=== PATIENT | male | born 1985 | race Caucasian/White ===

== ENCOUNTER 2023-09-01 16:29 | Emergency (ER) | payer OTHER, SELFPAY ==
[2023-09-01 16:41] VITALS: BP 165/100
[2023-09-01 17:14] LABS: % Basophils 0.4 % (0-2); % Eosinophils 3.9 % (0-6); % Immature Granulocytes 0.3 % (0-0.5); % Lymphocytes 28.3 % (20.5-51.1); % Monocytes 7.2 % (1.7-9.3); % Neutrophils 59.9 % (42.2-75.2); Absolute Eosinophils 0.4 10^3/uL (0-0.7); Absolute Lymphocytes 2.9 10^3/uL (1.2-3.4); Absolute Monocytes 0.7 10^3/uL (0.1-0.6); Absolute Neutrophils 6.1 10^3/uL (1.4-6.5); Hematocrit 40.7 % (39.0-52.0); Hemoglobin 14.1 g/dL (13.0-18.0); Mean Corp Hgb Conc. 34.6 g/dL (33.0-37.0); Mean Corpuscular Volume 92.3 fL (80.0-94.0); Mean Platelet Volume 10.4 fL (7.4-10.4); Nucleated Red Blood Cells % 0 % (-); Platelet Count 245 10^3/uL (130-400); Red Blood Cell Count 4.41 10^6/uL (4.70-6.10); Red Cell Dist. Width 12.6 % (11.5-14.5); White Blood Cell Count 10.2 10^3/uL (4.8-10.8)
[2023-09-01 17:23] LABS: ALT (SGPT) 27 U/L (0-50); AST (SGOT) 33 U/L (17-59); Albumin 4.6 g/dl (3.5-5.0); Alkaline Phosphatase 78 U/L (38-126); Blood Urea Nitrogen 18 mg/dl (9-20); Calcium 9.7 mg/dl (8.4-10.2); Carbon Dioxide 27 mmol/L (22-30); Chloride 101 mmol/L (98-107); Glucose 105 mg/dl (70-99); Sodium 138 mmol/L (135-145); Total Bilirubin 0.5 mg/dl (0.2-1.3); Total Protein 7.7 g/dl (6.3-8.2); eGFR > 60.00
[2023-09-01 17:33] LABS: Troponin I < 0.012 ng/ml
[2023-09-01 20:09] VITALS: BP 165/95
--- NOTE | 2023-09-01 20:11 | ED.GENMED ---
History of Present Illness
General
Chief Complaint: Fainting Sensation
Source: patient
Exam Limitations: none
Time Seen by Provider: 09/01/23 19:32
Travel History
Have you had any contact with someone who has COVID-19?: No
Do you have any symptoms of coronavirus? Fever > 100 degrees, chills, cough, shortness of breath, sore throat, loss of taste or smell, muscle aches, or headache?: No
History of Present Illness
History of Present Illness:
38-year-old male presents with presyncope started today while at work. He was sitting down. He started feeling lightheaded numb in both arms and legs. He denies any chest pain. He noticed on his heart rate function on his smart watch that his
heart rate was faster than usual. There was no back pain nausea vomiting. No recent fever. Of note patient does admit to drinking several caffeinated beverages today. This caffeine total 880 mg of caffeine. He states since the onset of symptoms
he now feels back to his baseline. Last ingestion of caffeine was about 5 hours prior to my exam.
Phy Exam
Physical Exam
Physical Exam:
General: Well-appearing male no acute respiratory distress
HEENT: NC/AT
Heart: RRR, no murmurs
Lungs; CTA bilaterally
Ext: NO cyanosis or edema
Skin: Warm, no rashes
Course
Orders/Labs/Results
Orders:
Orders
09/01/23 16:44
Electrocardiogram (*1) Urgent
Reason for Study: Syncope
EKG- Treatment ONCE
09/01/23 16:52
Complete Blood Count/With Diff Urgent
Comprehensive Metabolic Panel Urgent
Troponin I Urgent
Abnormal Lab Results
09/01/23
16:52
RBC 4.41 L 10^6/uL
(4.70-6.10)
MCH 32.0 H pg
(27.0-31.0)
Absolute Monos (auto) 0.7 H 10^3/uL
(0.1-0.6)
Glucose 105 H mg/dl
(70-99)
09/01/23 16:52
09/01/23 16:52
Vital Signs
Initial and Last Documented VS:
Initial Vital Signs
Temp Pulse Resp BP Pulse Ox
98.1 F 89 18 165/100 100
09/01/23 16:41 09/01/23 16:41 09/01/23 16:41 09/01/23 16:41 09/01/23 16:41
Last Documented Vital Signs
Temp Pulse Resp BP Pulse Ox
98.1 F 87 18 165/95 99
09/01/23 16:41 09/01/23 20:09 09/01/23 20:09 09/01/23 20:09 09/01/23 20:09
MDM/Problems Addressed
Differential Diagnosis Includes:
Presyncope. Question arrhythmia versus anemia versus electrolyte abnormality
Will check labs and EKG. Currently back to baseline
*Critical Care Note
Total Time (30-74mins, 75-104mins- exclusive of procedures): Not Applicable
Update Note
Update Note:
EKG shows sinus rhythm with a rate in the 80s no ischemic changes. Labs reviewed without significant findings and troponin is undetectable. Patient had a large amount of caffeine today totaling over 800 mg. I suspect he was temporarily
tachycardic secondary to this. No arrhythmias noted here. Recommended limiting caffeine intake stable for discharge home.
ED Attending Note
-
Portions of this chart may have been created with voice recognition software.� Occasional wrong word or��sound alike� substitutions may have occurred due to the inherent limitations of voice recognition software.
Discharge Plan
Departure
Patient Disposition: Home (Routine Discharge)
Date of Disposition: 09/01/23
Time of Disposition: 20:15
Patient with high blood pressure during this ER visit?: No
Discharge Problem:
Pre-syncope
Instructions: Near Fainting (DC)
Activity Restrictions/Additional Instructions:
Please limit caffeine intake. Stay hydrated otherwise. Follow-up with family doctor. Return if worse
Interventions
Interventions:
*Risk Screen - Suicide Last Done: 09/01/23 16:41
*General Assessment Last Done: 09/01/23 16:41
*Neglect/Abuse Screening Last Done: 09/01/23 16:41
*ED COVID-19 Vaccine History Last Done: 09/01/23 16:41
Discharge Date and Time
Print Language: ZAMBIAN
== END 2023-09-01 20:45 | disposition home or self-care (01) ==
LOC: EMR 16:29
PROVIDERS: Emergency Medicine; EMERGENCY PHYSICIAN Emergency Medicine; FAMILY PHYSICIAN Family Medicine
DX: R55 Syncope and collapse (principal)
CPT/HCPCS: 99284; 80053; 84484; 85025; 93005